=== PATIENT | male | born 1980 | race Caucasian/White ===

== ENCOUNTER → 2023-06-05 | Emergency (ER) | payer OTHER ==
[~2023-06-05] VITALS: Ht 185.4 cm; Wt 90.7 kg
[~2023-06-05] MED LIST: HYDROCODONE/APAP 10-325 MG TABLET ONE; HYDROCODONE/APAP 10-325 MG TABLET PO ONE; ONDANSETRON ODT 4 MG TAB.RAPDIS ONE; ONDANSETRON ODT 4 MG TAB.RAPDIS SL ONE
[2023-06-05 18:59] VITALS: O2SAT 99
== END | disposition left against medical advice (07) ==
LOC: ER 19:07
DX: S46.212A Strain of muscle, fascia and tendon of other parts of biceps, left arm, initial encounter (principal); X58.XXXA Exposure to other specified factors, initial encounter; Y93.89 Activity, other specified; Y92.89 Other specified places as the place of occurrence of the external cause; Y99.8 Other external cause status
CPT/HCPCS: 93005; A4606; A4663; Q0162